=== PATIENT | male | born 1995 | race Caucasian/White ===

== ENCOUNTER 2020-02-11 11:03 | Emergency (ER) | payer BC ==
[2020-02-11 11:15] VITALS: BP 141/92
--- NOTE | 2020-02-11 11:28 | ED Physician Documentation ---
PD HPI UPPER EXT INJURY - Stated complaint Stated Complaint: R ARM/WRIST PX - Chief complaint Chief Complaint: Ext Problem - History obtained from History obtained from: Patient - Additonal information Additional information: 2 years ago he fell on a chainsaw and suffered a laceration on the anterior part of the right wrist. Since then he has had progressive pain in that area that refers to the anterior forearm musculature especially with flexion and extension of the wrist. Review of Systems Constitutional: reports: Reviewed and negative Ears: reports: Reviewed and negative Nose: reports: Reviewed and negative PD PAST MEDICAL HISTORY - Past Medical History Past Medical History: Yes Cardiovascular: None Respiratory: None Neuro: None Endocrine/Autoimmune: None GI: None : None HEENT: None Psych: None Musculoskeletal: None Derm: None - Past Surgical History Past Surgical History: No - Present Medications Home Medications: Ambulatory Orders Medication Instructions Recorded Confirmed No Known Home Medications 02/11/20 02/11/20 - Allergies Allergies/Adverse Reactions: Allergies Allergy/AdvReac Type Severity Reaction Status Date / Time No Known Drug Allergies Allergy Verified 02/11/20 11:11 - Social History Does the pt smoke?: Yes Smoking Status: Current every day smoker Does the pt drink ETOH?: No Does the pt have substance abuse?: Yes Substance Use and Type: Marijuana - Immunizations Immunizations are current?: No PD ED PE NORMAL - Vitals Vital signs reviewed: Yes - General General: Alert and oriented X 3, No acute distress - Extremities Extremities: Other (There is a well-healed laceration with some visible scarring basically over the anterior right forearm just proximal to the wrist flexor crease over the ulna. There is no tenderness. No weakness in flexion of any of the digits. Full range of motion at the wrist.) - Neuro Neuro: Alert and oriented X 3, Normal speech Results - Vitals Vitals: Vital Signs - 24 hr 02/11/20 11:11 Temperature 37.2 C Heart Rate 100 Respiratory 16 Rate Blood Pressure 141/92 H O2 Saturation 99 Oxygen O2 Source Room air PD MEDICAL DECISION MAKING - ED course ED course: There is no acute emergency medical condition based on history and physical. Most likely scar tissue on the wrist flexor tendons. No evidence of actual tendinopathy. Recommended he follow-up with a hand surgeon. He declined a splint. Departure - Departure Disposition: 01 Home, Self Care Clinical Impression: Wrist pain, right Condition: Good Record reviewed to determine appropriate education?: Yes Comments: As discussed, the pain is likely from scar tissue on the flexor tendons of the wrist. Seems reasonable to follow-up with a hand surgeon, the closest is in [place]. The phone number is [phone] and his name is Brad Lucas. Return for new or worsening symptoms.
== END 2020-02-11 11:40 | disposition home or self-care (01) ==
LOC: ED 11:03
DX: M25.531 Pain in right wrist (principal); F17.200 Nicotine dependence, unspecified, uncomplicated
CPT/HCPCS: 99281; 99282